=== PATIENT | male | born 1935 | race Two or more races ===

== ENCOUNTER 2019-11-04 11:32 | Emergency (ER) | payer OTHER ==
[2019-11-04 11:54] VITALS: TEMP 98.4; BMI 34.9
--- NOTE | 2019-11-04 12:12 | PDOC ---
Attending Attestation - Resident Resident Name: CarlaSaKristen - ED Attending Attestation I have performed the following: I have examined & evaluated the patient, The case was reviewed & discussed with the resident, I agree w/resident's findings & plan, Exceptions are as noted - HPI HPI: 11/04/19 12:39 84y M hx of afib on eliquis, dilitiazem, htn, dm, presents with b/l leg swelling /pain/weeping over the past few weeks. Pt notes the skin is itching and uncomfortable making it dificult to sleep. Denies any fever/chills, redness, sob , orthopnea b/l leg swelling/weeping of clear discahrge without any erythema/induration no significant tenderness on palpation card: rrr, no mrg pulm: cta b/l suspect chronic edema/lymphedema +skin breakdown from scratching but no signs of suprainfection will have pt apply thin layer of bacitracin wound care and PMD fu will ck basic labs to screen for renal/liver pathology - Physicial Exam PE: 11/08/19 10:26 see above - Medical Decision Making labs reviewed pt stable will dc with oupatient fu
--- NOTE | 2019-11-04 12:27 | PDOC ---
History of Present Illness - General Chief Complaint: Pain Stated Complaint: SWOLLEN LEGS Time Seen by Provider: 11/04/19 11:56 History Source: Patient Exam Limitations: Language Barrier - History of Present Illness Initial Comments: 11/04/19 12:25 84y M with PMH of Afib (Diltiazem, Eliquis), NIDDM, HTN presenting to ED with complaints of bilateral leg swelling, itching and weeping. The swelling has been going on for around 3 weeks and the weeping for around 2 weeks. Patient states that his legs are itchy at night and it prevents him from sleeping. He took 2 ASA and it helped a little. Denies fever, chills, sob, chest pain, difficulty ambulating. PMD: Men[place] PMH: see hpi PSH: Meds: metformin 500, Eliquis, diltiazem, propranolol Allergies: nkda Past History - Past Medical History Allergies/Adverse Reactions: Allergies Allergy/AdvReac Type Severity Reaction Status Date / Time No Known Allergies Allergy Verified 11/04/19 11:46 - Psycho Social/Smoking Cessation Hx Smoking History: Never smoked Have you smoked in the past 12 months: No Hx Alcohol Use: No Drug/Substance Use Hx: No Review of Systems - Review of Systems Constitutional: No: Symptoms Reported HEENTM: No: Symptoms Reported Respiratory: No: Symptoms reported Cardiac (ROS): No: Symptoms Reported ABD/GI: No: Symptoms Reported : No: Symptoms Reported Musculoskeletal: Yes: See HPI Integumentary: Yes: See HPI Neurological: No: Symptoms reported *Physical Exam - Vital Signs Last Vital Signs Temp Pulse Resp BP Pulse Ox 98.4 F 104 H 18 121/68 99 11/04/19 11:46 11/04/19 11:46 11/04/19 11:46 11/04/19 11:46 11/04/19 11:46 - Physical Exam General Appearance: Yes: Appropriately Dressed, Obese. No: Apparent Distress HEENT: positive: EOMI, MISAEL Neck: positive: Trachea midline, Supple Respiratory/Chest: positive: Lungs Clear, Normal Breath Sounds. negative: Crackles, Rales, Rhonchi, Stridor, Wheezing Cardiovascular: positive: Regular Rhythm, Regular Rate, S1, S2. negative: Edema , JVD, Murmur Vascular Pulses: Dorsalis-Pedis (R): 2+, Doralis-Pedis (L): 2+ Gastrointestinal/Abdominal: positive: Normal Bowel Sounds, Soft. negative: Tender Musculoskeletal: negative: CVA Tenderness Extremity: positive: Normal Capillary Refill, Pedal Edema, Swelling (bilateral edema up to knees with weeping of serous fluid. no erythema, fluctuance or induration. no signs of superimposing skin/soft tissue infection). negative: Calf Tenderness, Erythema, Inflammation Integumentary: positive: Normal Color, Dry, Warm Neurologic: positive: electronic security specialist II-XII NML intact, Fully Oriented, Alert, Normal Mood/ Affect, Normal Response, Motor Strength 03/17 ED Treatment Course - LABORATORY CBC & Chemistry Diagram: 11/04/19 13:12 11/04/19 15:50 Medical Decision Making - Medical Decision Making 11/05/19 00:56 84y M presenting with leg swelling and pruritis. ddx includes vascular insufficiency, lyphmedema, dvt, chf, renal failure, liver failure. low suspidion for dvt; pt is anticoagulated and is present bilaterally with weeping. will obtain basic labs because we do not have any baseline labs here. likely dc home. labs wnl. no signs of cardiac, renal or liver pathology. will dc home. advise pt to f/u with pmd. Discharge - Discharge Information Problems reviewed: Yes Clinical Impression/Diagnosis: Lymphedema Condition: Good Disposition: HOME - Admission No - Follow up/Referral Referrals: Laly Urena MD [Primary Care Provider] - Reji Keen DO [Staff Physician] - - Patient Discharge Instructions Patient Printed Discharge Instructions: Chronic Venous Insufficiency Additional Instructions: Hoy lo vieron en la lorna de emergencias por hinchazn de piernas. El anlisis de ash es normal. [place] probablemente se deba a la estasis venosa. Recomiendo usar acecho de compresin. [place] las piernas cuando ests descansando. Intenta comer deb dieta baja en ford. Elissa deb deanne con ovalles mdico esta semana o principios de la prxima semana. Se edwards hecho deb referencia para el cuidado de heridas. El nmero se proporciona a continuacin. Regrese a la lorna de emergencias por empeoramiento de la hinchazn, dolor en el pecho, falta de aliento, fiebre o si se desarrolla algn sntoma nuevo o preocupante. Lola You were seen in the emergency room today for leg swelling. The blood work is normal. This is probably due to venous stasis. I recommend wearing compression stalkings. Elevate the legs when you are resting. Try to eat a low salt diet. Please make an appointment with your doctor this week or early next week. A referral has been made to wound care. The number is provided below. Come back to the emergency room for worsening swelling, chest pain, shortness of breath, fevers or if any new or concerning symptom develops. Thank you Print Language: KAZAKH - Post Discharge Activity
[2019-11-04] MEDS ORDERED: ACETAMINOPHEN 500 MG TABLET (FP) PO ONE (12:46)
[2019-11-04] MEDS ORDERED: ACETAMINOPHEN 325 MG TABLET (FP) ONE (13:17)
[2019-11-04 13:41] LABS: EOS % 1.4 % (0-4.5); HEMOGLOBIN 11.9 GM/dL (11.7-16.9); LYMPH % 11.9 % (8-40); MCHC 32.2 g/dl (32.0-35.9); MEAN CELL VOLUME 93.3 fl (80-96); MEAN PLT VOLUME 9.1 fl (7.5-11.1); MONO % 9.9 % (3.8-10.2); NEUT % 75.8 % (42.8-82.8); PLATELET COUNT 350 K/MM3 (134-434); RBC 3.97 M/mm3 (4.00-5.60); RDW 20.3 % (11.9-15.9); WHITE BLOOD COUNT 6.5 K/mm3 (4.0-10.0)
[2019-11-04 16:42] LABS: BILIRUBIN,TOTAL 0.9 mg/dL (0.2-1); BLOOD UREA NITROGEN 23.7 mg/dL (7-18); CALCIUM 8.5 mg/dL (8.5-10.1); CREATININE 1.3 mg/dL (0.55-1.3); POTASSIUM 4.2 mmol/L (3.5-5.1); TOT PROT 7.1 g/dl (6.4-8.2)
[2019-11-04 18:16] VITALS: BP 130/58; PULSE 88
== END 2019-11-04 18:16 | disposition home or self-care (01) ==
LOC: JER 11:32
DX: I89.0 Lymphedema, not elsewhere classified (principal); E11.9 Type 2 diabetes mellitus without complications; Z79.84 Long term (current) use of oral hypoglycemic drugs; I25.10 Atherosclerotic heart disease of native coronary artery without angina pectoris; I10 Essential (primary) hypertension; I48.91 Unspecified atrial fibrillation; Z79.01 Long term (current) use of anticoagulants
CPT/HCPCS: 36415; 80053; 85025; 99284-25